=== PATIENT | male | born 1950 | race Caucasian/White ===

== ENCOUNTER 2022-01-04 20:35 | Emergency (ER) | payer MEDICARE ==
[~2022-01-04] VITALS: Ht 190.5 cm; Wt 140.0 kg
[2022-01-04] MEDS ORDERED: OXYMETAZOLINE 0.05% NASAL SPRAY 30ML BOTTLE. NS ONE ×2 (21:38→21:45)
--- NOTE | 2022-01-04 22:08 | PHYS DOC ---
Past History Past Medical History: Hypertension Past Surgical History: No Surgical History Alcohol Use: None General Adult EDM: Chief Complaint: NOSEBLEED HPI: HPI: ".. My nose got to bleeding and it would not stop..." Patient is a 71 year old male who presents with above hx and epistaxis. Patient is having bleeding out of both naris.. Does appear to be primary bleeding from left [place] area. Patient denies any trauma. Patient denies any recent cold but has had some mild congestion. Patient states bleeding started after blowing his nose. Patient denies any history of coagulation problems. Patient does have some history of hypertension. Patient did receive a spray of Afrin while waiting in fast track and patient's bleeding stopped shortly afterwards. Review of Systems: Review of Systems: Constitutional: Denies fever or chills Eyes: Denies change in visual acuity HENT: Complains of nasal congestion and nosebleed Respiratory: Denies cough or shortness of breath Cardiovascular: Denies chest pain or edema GI: Denies abdominal pain, nausea, vomiting, bloody stools or diarrhea : Denies dysuria Musculoskeletal: Denies back pain or joint pain Integument: Denies rash Neurologic: Denies headache, focal weakness or sensory changes Endocrine: Denies polyuria or polydipsia Lymphatic: Denies swollen glands Psychiatric: Denies depression or anxiety Family History: Family History: Noncontributory to presentation Current Medications: Current Meds: Nursing for home meds Current Medications Medications (Trade) Dose Ordered Sig/Demi Start Time Stop Time Status Last Admin Dose Admin Oxymetazoline HCl (Afrin) 100 spray STK-MED ONCE 01/04/22 21:38 01/04/22 21:38 DC Allergies: Allergies: Allergies Coded Allergies Type Severity Reaction Last Updated Verified No Known Drug Allergies 01/04/22 No Physical Exam: PE: Constitutional: Well developed, well nourished, mild distress, non-toxic appearance. [] HENT: Normocephalic, atraumatic, bilateral external ears normal, oropharynx moist, no oral exudates, nose swollen turbinates. No septal hematoma. Bleeding primarily from left [place] area. Eyes: PERRLA, EOMI, conjunctiva normal, no discharge. [] Neck: Normal range of motion, no tenderness, supple, no stridor. [] Cardiovascular:Heart rate regular rhythm, no murmur [] PMI slightly to the left Lungs & Thorax: Bilateral breath sounds equal at apex auscultation [] Abdomen: Bowel sounds normal, soft, no tenderness, no masses, no pulsatile masses. [] Skin: Warm, dry, no erythema, no rash. No petechiae or excessive bruising appreciated Back: No tenderness, no CVA tenderness. [] Extremities: No tenderness, no cyanosis, no clubbing, ROM intact, no edema. [] Neurologic: Alert and oriented X 3, moves all extremities on request, has distal sensory,, no focal deficits noted. [] Psychologic: Affect normal, judgement normal, mood normal. [] Current Patient Data: Vital Signs: Vital Signs Date Time Temp Pulse Resp B/P (MAP) Pulse Ox O2 Delivery O2 Flow Rate FiO2 01/04/22 21:34 98.4 83 16 176/84 (114) 98 Room Air EKG: EKG: [] Radiology/Procedures: Radiology/Procedures: [] Heart Score: C/O Chest Pain: N/A Risk Factors: Risk Factors: DM, Current or recent (<one month) smoker, HTN, HLP, family history of CAD, obesity. Risk Scores: Score 0 - 3: 2.5% MACE over next 6 weeks - Discharge Home Score 4 - 6: 20.3% MACE over next 6 weeks - Admit for Clinical Observation Score 7 - 10: 72.7% MACE over next 6 weeks - Early Invasive Strategies Course & Med Decision Making: Course & Med Decision Making Pertinent Labs and Imaging studies reviewed. (See chart for details) Patient may use the Afrin spray again if he rebleeds. Use a small amount of antibiotic ointment to both naris 4 times a day. Avoid aspirin and NSAIDs for the next couple days. DO NOT BLOW NOSE x 2 days . May sniff. If rebleeding occurs may need nasal packing. Return if any concerns. Follow-up primary care. Review hypertensive meds with primary.. Impression: 1. Epistaxis 2 hypertension [] Dragon Disclaimer: Dragmacrina Disclaimer: This electronic medical record was generated, in whole or in part, using a voice recognition dictation system. Departure Departure: Referrals: NON,STAFF (PCP) Vitor Disclaimer This chart was dictated in whole or in part using Voice Recognition software in a busy, high-work load, and often noisy Emergency Department environment. It may contain unintended and wholly unrecognized errors or omissions. LURDES ALCANTARA MD Jan 04, 2022 22:08
[2022-01-04 22:45] VITALS: BP 140/73
[2022-01-04] MEDS ORDERED: BACITRACIN ZINC TOPICAL OINT PACKET. TP ONE (23:15)
== END 2022-01-04 23:06 | disposition home or self-care (01) ==
LOC: ER 20:35
DX: R04.0 Epistaxis (principal); I10 Essential (primary) hypertension; R09.81 Nasal congestion
CPT/HCPCS: 99281; 99282